=== PATIENT | female | born 1930 | race Caucasian/White ===

== ENCOUNTER 2018-05-08 18:12 | Emergency (ER) | payer MEDICARE, MEDICAID ==
[~2018-05-08] VITALS: Ht 162.6 cm; Wt 67.0 kg
[~2018-05-08 18:12] MED LIST: LEVO25TA7 PO; RISP0.5T74 PO
[2018-05-08 19:00] LABS: BASOPHILS % (AUTO) 0.3 % (0-1); EOSINOPHILS % (AUTO) 0 % (0-6); HEMATOCRIT 36.7 % (35.0-45.0); HEMOGLOBIN 12.4 g/dl (12.0-16.0); LYMPHOCYTES % (AUTO) 10.8 % (21-51); MEAN CORPUSCULAR HEMOGLOBIN 31.6 PG (27.0-31.0); MEAN CORPUSCULAR HGB CONC 33.7 % (33.0-36.5); MEAN CORPUSCULAR VOLUME 93.7 FL (78-98); MEAN PLATELET VOLUME 7.3 FL (7.4-10.4); MONOCYTES # (AUTO) 0.7 X10'3 (0-0.9); MONOCYTES % (AUTO) 7.1 % (2-12); NEUTROPHILS # (AUTO) 7.8 X10'3 (1.8-7.7); NEUTROPHILS % (AUTO) 81.8 % (42-75); PLATELET COUNT 173 X10'3 (140-440); RED BLOOD COUNT 3.92 X10'6 (4.20-5.60); RED CELL DISTRIBUTION WIDTH 14.4 % (11.5-14.5); WHITE BLOOD COUNT 9.5 X10'3 (4.5-11.0)
[2018-05-08 19:24] LABS: ALANINE AMINOTRANSFERASE 17 U/L (12-78); ALBUMIN 2.9 G/DL (3.4-5.0); ALBUMIN/GLOBULIN RATIO 0.9 (1.1-1.5); ALKALINE PHOSPHATASE 75 IU/L (46-116); ANION GAP 9 (8-16); ASPARTATE AMINO TRANSFERASE 15 U/L (10-37); BILIRUBIN,TOTAL 0.5 MG/DL (0.1-1.0); BLOOD UREA NITROGEN 30 MG/DL (7-18); BUN/CREATININE RATIO 21.4 (6.6-38.0); CALCIUM 8.1 MG/DL (8.5-10.1); CHLORIDE 101 MMOL/L (99-107); GLUCOSE 124 MG/DL (70-104); POTASSIUM 3.3 MMOL/L (3.5-5.1); SODIUM 139 MMOL/L (135-145); TOTAL CARBON DIOXIDE 29.3 MMOL/L (24-32); TOTAL PROTEIN 6.1 G/DL (6.4-8.2); eGFR 36 ML/MIN
[2018-05-08 19:57] LABS: CLARITY,URINE SLIGHTLY CLOUDY (Clear); COLOR,URINE YELLOW (Yellow); GLUCOSE, URINE NEGATIVE (Neg); KETONES,URINE TRACE mg/dl (Neg); LEUKOCYTE ESTERASE ,URINE SMALL (Neg); NITRITES, URINE POSITIVE (Neg); OCCULT BLOOD,URINE SMALL (Neg); PROTEIN,URINE TRACE mg/dl (Neg); UROBILINOGEN,URINE 0.2 E.U/dL (0.2-1.0)
[2018-05-08 20:00] LABS: UA COLLECTION TYPE STRAIGHT CATH
[2018-05-08 20:18] LABS: WBC CLUMPS,URINE FEW /HPF (NEGATIVE); WBC,URINE TNTC /HPF (0-4)
[2018-05-08 20:19] LABS: BACTERIA,URINE 4+ /HPF (Neg); RBC,URINE 0-2 /HPF (0-2); SQUAMOUS EPITHELIAL CELL,UR MODERATE /LPF (FEW)
[2018-05-08] MEDS ORDERED: CefTRIAXone 2gm/D5W 50ml 50 ML IV ONE (20:55)
[2018-05-08 21:07] VITALS: BP 109/68
[2018-05-08] MEDS ORDERED: CEPH500C5 PO (21:15)
[2018-05-08] MEDS ORDERED: diphenhydrAMINE 25mg capsule PO ONE (23:25)
== END 2018-05-08 23:37 | disposition home or self-care (01) ==
LOC: ER 18:13
DX: R41.82 Altered mental status, unspecified (principal); E86.0 Dehydration; N39.0 Urinary tract infection, site not specified; F03.90 Unspecified dementia, unspecified severity, without behavioral disturbance, psychotic disturbance, mood disturbance, and anxiety; R53.1 Weakness; E03.9 Hypothyroidism, unspecified; Z90.49 Acquired absence of other specified parts of digestive tract; Z98.890 Other specified postprocedural states; Z79.899 Other long term (current) drug therapy
CPT/HCPCS: 36415; 70450; 71045; 80053; 81001; 83605; 85025; 87040; 87077; 87088; 87186; 93005; 96365; 99285; J0696; P9612; Q0163

== ENCOUNTER 2018-07-21 22:29 | Inpatient (IN) | payer MEDICARE, MEDICAID ==
[~2018-07-21] VITALS: Ht 162.6 cm; Wt 72.0 kg
[~2018-07-21 22:29] MED LIST changes: +CEPH500C5 PO
[2018-07-21] MEDS ORDERED: levoFLOXACIN-Levaquin 750MG/D5 150 ML IV ONE (22:50)
[2018-07-21] MEDS ORDERED: acetaminophen 325mg tablet PO STA (22:50)
[2018-07-21] MEDS ORDERED: normal saline 1000ML IV soln IVB ONE (22:50)
[2018-07-21 23:22] LABS: BASOPHILS % (AUTO) 0.2 % (0-1); EOSINOPHILS % (AUTO) 0 % (0-6); HEMATOCRIT 39.7 % (35.0-45.0); HEMOGLOBIN 13.1 g/dl (12.0-16.0); LYMPHOCYTES # (AUTO) 0.6 X10'3 (1.1-4.8); LYMPHOCYTES % (AUTO) 6.6 % (21-51); MEAN CORPUSCULAR HEMOGLOBIN 31.2 PG (27.0-31.0); MEAN CORPUSCULAR HGB CONC 33.1 % (33.0-36.5); MEAN CORPUSCULAR VOLUME 94.4 FL (78-98); MEAN PLATELET VOLUME 7.5 FL (7.4-10.4); MONOCYTES # (AUTO) 0.5 X10'3 (0-0.9); MONOCYTES % (AUTO) 5.5 % (2-12); NEUTROPHILS # (AUTO) 8.5 X10'3 (1.8-7.7); NEUTROPHILS % (AUTO) 87.7 % (42-75); PLATELET COUNT 189 X10'3 (140-440); RED BLOOD COUNT 4.21 X10'6 (4.20-5.60); RED CELL DISTRIBUTION WIDTH 13.6 % (11.5-14.5); WHITE BLOOD COUNT 9.7 X10'3 (4.5-11.0)
[2018-07-21 23:33] LABS: PROTHROMBIN TIME 10.6 SECONDS (9.0-12.0)
[2018-07-21 23:34] LABS: PARTIAL THROMBOPLASTIN TIME 28 SECONDS (22-32)
[2018-07-21 23:49] LABS: ALANINE AMINOTRANSFERASE 19 U/L (12-78); ALBUMIN/GLOBULIN RATIO 0.8 (1.1-1.5); ALKALINE PHOSPHATASE 83 IU/L (46-116); ANION GAP 5 (8-16); ASPARTATE AMINO TRANSFERASE 18 U/L (10-37); BILIRUBIN,TOTAL 0.7 MG/DL (0.1-1.0); BLOOD UREA NITROGEN 29 MG/DL (7-18); BUN/CREATININE RATIO 27.9 (6.6-38.0); CALCIUM 8.7 MG/DL (8.5-10.1); CHLORIDE 100 MMOL/L (99-107); CREATININE 1.04 MG/DL (0.40-0.90); GLUCOSE 109 MG/DL (70-104); MAGNESIUM 2.1 MG/DL (1.5-2.4); POTASSIUM 3.7 MMOL/L (3.5-5.1); SODIUM 138 MMOL/L (135-145); TOTAL CARBON DIOXIDE 32.6 MMOL/L (24-32); TOTAL PROTEIN 6.6 G/DL (6.4-8.2); eGFR 50 ML/MIN
[2018-07-22] MEDS ORDERED: LEVO50TA8 PO (00:18)
[2018-07-22] MEDS ORDERED: OLAN5TAB5 PO (00:18)
[2018-07-22] MEDS ORDERED: HYDR50TA3 PO (00:18)
[2018-07-22 00:22] LABS: CLARITY,URINE CLOUDY (Clear); COLOR,URINE YELLOW (Yellow); GLUCOSE, URINE NEGATIVE (Neg); KETONES,URINE NEGATIVE (Neg); LEUKOCYTE ESTERASE ,URINE LARGE (Neg); NITRITES, URINE POSITIVE (Neg); OCCULT BLOOD,URINE MODERATE (Neg); PROTEIN,URINE TRACE mg/dl (Neg); UROBILINOGEN,URINE 0.2 E.U/dL (0.2-1.0)
[2018-07-22 00:31] LABS: UA COLLECTION TYPE CLN CATCH MIDSTREAM
[2018-07-22 00:33] LABS: RBC,URINE NONE SEEN /HPF (0-2); WBC,URINE 50-100 /HPF (0-4)
[2018-07-22 00:34] LABS: BACTERIA,URINE 4+ /HPF (Neg); SQUAMOUS EPITHELIAL CELL,UR MODERATE /LPF (FEW)
[2018-07-22] MEDS ORDERED: ondansetron/PF 4mg/2ml inj IV PRN (02:15)
[2018-07-22] MEDS ORDERED: acetaminophen 325mg tablet PO PRN ×2 (02:15)
[2018-07-22] MEDS ORDERED: mag hydrox/Alum hydrox/simeth 30ml oral suspension PO PRN (02:15)
[2018-07-22] MEDS ORDERED: magnesium hydroxide 30ml (MOM) UD suspension PO PRN (02:15)
[2018-07-22 03:23] VITALS: BP 106/50
[2018-07-22] MEDS ORDERED: HYDROcodone/acetaminophen 10/325mg tab PO PRN (03:50)
[2018-07-22] MEDS: HYDROcodone/acetaminophen 5mg/325mg tablet PO PRN (04:02)
[2018-07-22] MEDS: cefepime 1GM/NS ADD-VANTAGE 100 ML IV SCH (04:35)
[2018-07-22] MEDS: normal saline 1000ml 1,000 ML IV SCH ×3 (04:35→23:52)
[2018-07-22 10:30] VITALS: BP 104/41
[2018-07-22] MEDS: levoTHYROXINE 25mcg tablet PO SCH (10:33)
[2018-07-22] MEDS: OLANZapine 5mg rapidly disint. tablet PO SCH (10:33)
[2018-07-22 20:00] VITALS: BP 92/48
[2018-07-22] MEDS: lactobacillus rhamnosus 10,000 MMU CELLS/CAPSULE PO SCH (20:31)
[2018-07-23] VITALS: BP 114/49
[2018-07-23] MEDS: HYDROcodone/acetaminophen 5mg/325mg tablet PO PRN (01:31)
[2018-07-23] MEDS: vancomycin/NS 1 GM ADD-VANTAGE 250 ML IV SCH (03:07)
[2018-07-23 05:00] VITALS: BP 103/49
[2018-07-23] MEDS: cefepime 1GM/NS ADD-VANTAGE 100 ML IV SCH (05:08)
[2018-07-23] MEDS: OLANZapine 5mg rapidly disint. tablet PO SCH (07:58)
[2018-07-23] MEDS: levoTHYROXINE 25mcg tablet PO SCH (07:59)
[2018-07-23] MEDS: lactobacillus rhamnosus 10,000 MMU CELLS/CAPSULE PO SCH ×2 (07:59→21:08)
[2018-07-23 08:17] LABS: BASOPHILS % (AUTO) 0.3 % (0-1); EOSINOPHILS # (AUTO) 0.1 X10'3 (0-0.9); EOSINOPHILS % (AUTO) 1.4 % (0-6); HEMATOCRIT 37.8 % (35.0-45.0); HEMOGLOBIN 12.4 g/dl (12.0-16.0); LYMPHOCYTES # (AUTO) 0.5 X10'3 (1.1-4.8); MEAN CORPUSCULAR HGB CONC 32.9 % (33.0-36.5); MEAN CORPUSCULAR VOLUME 94.3 FL (78-98); MEAN PLATELET VOLUME 7.3 FL (7.4-10.4); MONOCYTES # (AUTO) 0.4 X10'3 (0-0.9); MONOCYTES % (AUTO) 7.5 % (2-12); NEUTROPHILS # (AUTO) 4.9 X10'3 (1.8-7.7); NEUTROPHILS % (AUTO) 82.8 % (42-75); PLATELET COUNT 167 X10'3 (140-440); RED BLOOD COUNT 4.01 X10'6 (4.20-5.60); RED CELL DISTRIBUTION WIDTH 14.5 % (11.5-14.5); WHITE BLOOD COUNT 5.9 X10'3 (4.5-11.0)
[2018-07-23 08:28] LABS: ALBUMIN 2.6 G/DL (3.4-5.0); ANION GAP 7 (8-16); BLOOD UREA NITROGEN 26 MG/DL (7-18); BUN/CREATININE RATIO 23.6 (6.6-38.0); CALCIUM 8.4 MG/DL (8.5-10.1); CHLORIDE 103 MMOL/L (99-107); GLUCOSE 95 MG/DL (70-104); POTASSIUM 3.5 MMOL/L (3.5-5.1); SODIUM 140 MMOL/L (135-145); eGFR 47 ML/MIN
[2018-07-23 10:00] VITALS: BP 85/36
[2018-07-23 18:00] VITALS: BP 107/40
[2018-07-23] MEDS: normal saline 1000ml 1,000 ML IV SCH (19:13)
[2018-07-23 22:00] VITALS: BP 134/69
[2018-07-24] MEDS: HYDROcodone/acetaminophen 5mg/325mg tablet PO PRN (00:50)
[2018-07-24] MEDS: vancomycin/NS 1 GM ADD-VANTAGE 250 ML IV SCH (03:36)
[2018-07-24] MEDS: cefepime 1GM/NS ADD-VANTAGE 100 ML IV SCH (05:33)
[2018-07-24 06:00] VITALS: BP 117/63
[2018-07-24 06:00] LABS: BASOPHILS % (AUTO) 0.3 % (0-1); EOSINOPHILS # (AUTO) 0.1 X10'3 (0-0.9); EOSINOPHILS % (AUTO) 2.5 % (0-6); HEMATOCRIT 36.1 % (35.0-45.0); LYMPHOCYTES % (AUTO) 24.4 % (21-51); MEAN CORPUSCULAR HEMOGLOBIN 31.1 PG (27.0-31.0); MEAN CORPUSCULAR HGB CONC 33.3 % (33.0-36.5); MEAN CORPUSCULAR VOLUME 93.5 FL (78-98); MEAN PLATELET VOLUME 7.3 FL (7.4-10.4); MONOCYTES # (AUTO) 0.4 X10'3 (0-0.9); MONOCYTES % (AUTO) 10.5 % (2-12); NEUTROPHILS # (AUTO) 2.5 X10'3 (1.8-7.7); NEUTROPHILS % (AUTO) 62.3 % (42-75); PLATELET COUNT 192 X10'3 (140-440); RED BLOOD COUNT 3.86 X10'6 (4.20-5.60); RED CELL DISTRIBUTION WIDTH 14.2 % (11.5-14.5)
[2018-07-24 06:27] LABS: ALBUMIN 2.3 G/DL (3.4-5.0); ANION GAP 5 (8-16); BLOOD UREA NITROGEN 18 MG/DL (7-18); BUN/CREATININE RATIO 19.6 (6.6-38.0); CALCIUM 8.3 MG/DL (8.5-10.1); CHLORIDE 105 MMOL/L (99-107); CREATININE 0.92 MG/DL (0.40-0.90); GLUCOSE 88 MG/DL (70-104); POTASSIUM 3.1 MMOL/L (3.5-5.1); SODIUM 141 MMOL/L (135-145); TOTAL CARBON DIOXIDE 31.5 MMOL/L (24-32); eGFR 58 ML/MIN
[2018-07-24] MEDS: normal saline 1000ml 1,000 ML IV SCH ×2 (07:32→13:51)
[2018-07-24] MEDS: lactobacillus rhamnosus 10,000 MMU CELLS/CAPSULE PO SCH ×2 (07:52→19:18)
[2018-07-24] MEDS: levoTHYROXINE 25mcg tablet PO SCH (07:52)
[2018-07-24] MEDS: OLANZapine 5mg rapidly disint. tablet PO SCH (07:52)
[2018-07-24 10:17] VITALS: BP 128/35
[2018-07-24] MEDS ORDERED: potassium Cl 20 mEq SR tablet PO PRN (15:45)
[2018-07-24] MEDS: potassium Cl 20 mEq SR tablet PO PRN ×2 (16:45→20:30)
[2018-07-24 18:00] VITALS: BP 138/64
[2018-07-24] MEDS ORDERED: potassium Cl 40MEQ/NS 500ml 500 ML IV PRN ×2 (21:00)
[2018-07-24 22:00] VITALS: BP 104/56
[2018-07-25] MEDS: albuterol 2.5 MG/3 ML nebule NEB PRN ×2 (00:43→14:19)
[2018-07-25] MEDS ORDERED: VANCOMYCIN LEVEL IV NR (02:30)
[2018-07-25 02:31] LABS: BASOPHILS % (AUTO) 0.6 % (0-1); EOSINOPHILS # (AUTO) 0.1 X10'3 (0-0.9); EOSINOPHILS % (AUTO) 3.2 % (0-6); HEMATOCRIT 37.2 % (35.0-45.0); HEMOGLOBIN 12.4 g/dl (12.0-16.0); LYMPHOCYTES # (AUTO) 1.2 X10'3 (1.1-4.8); LYMPHOCYTES % (AUTO) 35.4 % (21-51); MEAN CORPUSCULAR HEMOGLOBIN 31.2 PG (27.0-31.0); MEAN CORPUSCULAR HGB CONC 33.3 % (33.0-36.5); MEAN CORPUSCULAR VOLUME 93.8 FL (78-98); MONOCYTES # (AUTO) 0.4 X10'3 (0-0.9); MONOCYTES % (AUTO) 11.3 % (2-12); NEUTROPHILS # (AUTO) 1.7 X10'3 (1.8-7.7); NEUTROPHILS % (AUTO) 49.5 % (42-75); PLATELET COUNT 211 X10'3 (140-440); RED BLOOD COUNT 3.97 X10'6 (4.20-5.60); RED CELL DISTRIBUTION WIDTH 13.9 % (11.5-14.5); WHITE BLOOD COUNT 3.5 X10'3 (4.5-11.0)
[2018-07-25 02:46] LABS: ALBUMIN 2.4 G/DL (3.4-5.0); ANION GAP 6 (8-16); BLOOD UREA NITROGEN 19 MG/DL (7-18); BUN/CREATININE RATIO 20.4 (6.6-38.0); CALCIUM 8.4 MG/DL (8.5-10.1); CHLORIDE 108 MMOL/L (99-107); CREATININE 0.93 MG/DL (0.40-0.90); GLUCOSE 105 MG/DL (70-104); POTASSIUM 4.4 MMOL/L (3.5-5.1); SODIUM 144 MMOL/L (135-145); TOTAL CARBON DIOXIDE 30.5 MMOL/L (24-32); eGFR 57 ML/MIN
[2018-07-25] MEDS: cefepime 1GM/NS ADD-VANTAGE 100 ML IV SCH (03:08)
[2018-07-25] MEDS: vancomycin/NS 1 GM ADD-VANTAGE 250 ML IV SCH (03:10)
[2018-07-25 05:00] VITALS: BP 126/47
[2018-07-25] MEDS: levoTHYROXINE 25mcg tablet PO SCH (07:37)
[2018-07-25] MEDS: lactobacillus rhamnosus 10,000 MMU CELLS/CAPSULE PO SCH (07:37)
[2018-07-25] MEDS: OLANZapine 5mg rapidly disint. tablet PO SCH (07:37)
[2018-07-25 10:00] VITALS: BP 149/53
[2018-07-25] MEDS: normal saline 1000ml 1,000 ML IV SCH (10:12)
[2018-07-25] MEDS ORDERED: CEFD300C3 PO (14:37)
== END 2018-07-25 17:21 | disposition home or self-care (01) | DRG 871 ==
LOC: ER 22:30 → ED HOLD 07-22 02:12 → ORTHO 4S 07-22 02:35
PROVIDERS: ADMIT Internal Medicine; ATTEND Family Medicine
DX: A41.9 Sepsis, unspecified organism (principal); J18.9 Pneumonia, unspecified organism; E43 Unspecified severe protein-calorie malnutrition; N39.0 Urinary tract infection, site not specified; N17.9 Acute kidney failure, unspecified; R09.02 Hypoxemia; B96.20 Unspecified Escherichia coli [E. coli] as the cause of diseases classified elsewhere; E03.9 Hypothyroidism, unspecified; E83.51 Hypocalcemia; E87.6 Hypokalemia; E86.0 Dehydration; F02.80 Dementia in other diseases classified elsewhere, unspecified severity, without behavioral disturbance, psychotic disturbance, mood disturbance, and anxiety; G30.9 Alzheimer's disease, unspecified; I12.9 Hypertensive chronic kidney disease with stage 1 through stage 4 chronic kidney disease, or unspecified chronic kidney disease; N18.9 Chronic kidney disease, unspecified; Z66 Do not resuscitate; Z96.642 Presence of left artificial hip joint; Z90.49 Acquired absence of other specified parts of digestive tract; Z99.3 Dependence on wheelchair; Z79.899 Other long term (current) drug therapy; Z79.890 Hormone replacement therapy; Z87.440 Personal history of urinary (tract) infections; Z87.891 Personal history of nicotine dependence; Z68.27 Body mass index [BMI] 27.0-27.9, adult
CPT/HCPCS: 36415; 71045; 80048; 80053; 80202; 81001; 83605; 83735; 84145; 84443; 84484; 85025; 85610; 85730; 87040; 87070; 87077; 87088; 87186; 87502; 87503; 94640; 94760; 96365; 97116; 97161; 97530; 97535; 99285; G0378; J0692; J1956; J3370; J3480; J7030

== ENCOUNTER 2018-08-12 07:24 | Inpatient (IN) | payer MEDICARE, MEDICAID ==
[~2018-08-12] VITALS: Ht 167.6 cm; Wt 72.7 kg
[~2018-08-12 07:24] MED LIST changes: +CEFD300C3 PO; -CEPH500C5 PO; +HYDR50TA3 PO; -LEVO25TA7 PO; +LEVO50TA8 PO; +OLAN5TAB5 PO; -RISP0.5T74 PO
[2018-08-12] MEDS ORDERED: CefTRIAXone 2gm/D5W 50ml 50 ML IV ONE (07:30)
[2018-08-12] MEDS ORDERED: normal saline 1000ML IV soln IV ONE (07:30)
[2018-08-12] MEDS ORDERED: vancomycin/NS 1 GM ADD-VANTAGE 250 ML IV ONE (07:30)
[2018-08-12 08:33] LABS: BASOPHILS % (AUTO) 0.2 % (0-1); EOSINOPHILS % (AUTO) 0.3 % (0-6); HEMATOCRIT 38.9 % (35.0-45.0); HEMOGLOBIN 13.1 g/dl (12.0-16.0); LYMPHOCYTES # (AUTO) 0.5 X10'3 (1.1-4.8); MEAN CORPUSCULAR HEMOGLOBIN 31.2 PG (27.0-31.0); MEAN CORPUSCULAR HGB CONC 33.7 % (33.0-36.5); MEAN CORPUSCULAR VOLUME 92.7 FL (78-98); MEAN PLATELET VOLUME 7.8 FL (7.4-10.4); MONOCYTES % (AUTO) 5.9 % (2-12); NEUTROPHILS # (AUTO) 14.9 X10'3 (1.8-7.7); NEUTROPHILS % (AUTO) 90.6 % (42-75); PLATELET COUNT 229 X10'3 (140-440); RED CELL DISTRIBUTION WIDTH 13.6 % (11.5-14.5); WHITE BLOOD COUNT 16.4 X10'3 (4.5-11.0)
[2018-08-12 08:39] LABS: ALANINE AMINOTRANSFERASE 15 U/L (12-78); ALBUMIN 2.8 G/DL (3.4-5.0); ALBUMIN/GLOBULIN RATIO 0.8 (1.1-1.5); ALKALINE PHOSPHATASE 78 IU/L (46-116); ANION GAP 13 (8-16); ASPARTATE AMINO TRANSFERASE 24 U/L (10-37); BILIRUBIN,TOTAL 0.7 MG/DL (0.1-1.0); BLOOD UREA NITROGEN 38 MG/DL (7-18); BUN/CREATININE RATIO 14.8 (6.6-38.0); CALCIUM 8.5 MG/DL (8.5-10.1); CHLORIDE 100 MMOL/L (99-107); CREATININE 2.57 MG/DL (0.40-0.90); GLUCOSE 140 MG/DL (70-104); MAGNESIUM 1.6 MG/DL (1.5-2.4); POTASSIUM 3.6 MMOL/L (3.5-5.1); SODIUM 140 MMOL/L (135-145); TOTAL CARBON DIOXIDE 26.6 MMOL/L (24-32); TOTAL PROTEIN 6.2 G/DL (6.4-8.2); eGFR 18 ML/MIN
[2018-08-12] MEDS ORDERED: OLAN7.5T9 PO (08:44)
[2018-08-12 09:06] LABS: PROTHROMBIN TIME 10.7 SECONDS (9.0-12.0)
[2018-08-12 09:07] LABS: INR 1.1 INR; PARTIAL THROMBOPLASTIN TIME 23 SECONDS (22-32)
[2018-08-12 09:24] LABS: PLATELET ESTIMATE NORMAL; TOTAL CELLS COUNTED 100
[2018-08-12] MEDS ORDERED: acetaminophen 1,000mg/100ml IV 100 ML IV ONE (09:25)
[2018-08-12 09:29] LABS: CLARITY,URINE CLOUDY (Clear); COLOR,URINE YELLOW (Yellow); GLUCOSE, URINE NEGATIVE (Neg); KETONES,URINE TRACE mg/dl (Neg); LEUKOCYTE ESTERASE ,URINE LARGE (Neg); NITRITES, URINE POSITIVE (Neg); OCCULT BLOOD,URINE LARGE (Neg); PH,URINE 6.5 (4.8-8.0); PROTEIN,URINE 100 mg/dl (Neg); UROBILINOGEN,URINE 0.2 E.U/dL (0.2-1.0)
[2018-08-12] MEDS ORDERED: acetaminophen 650mg rectal suppository RC ONE ×2 (09:35→11:40)
[2018-08-12 09:39] LABS: UA COLLECTION TYPE FOLEY CATH
[2018-08-12 09:41] LABS: BACTERIA,URINE 3+ /HPF (Neg); SQUAMOUS EPITHELIAL CELL,UR FEW /LPF (FEW); WBC,URINE TNTC /HPF (0-4)
[2018-08-12] MEDS ORDERED: magnesium Cl slow-release 64mg tablet PO PRN (10:20)
[2018-08-12] MEDS ORDERED: ondansetron/PF 4mg/2ml inj IV PRN (10:20)
[2018-08-12] MEDS ORDERED: magnesium 4gm in 100ml NS 100 ML IV PRN (10:20)
[2018-08-12] MEDS ORDERED: potassium Cl 20 mEq SR tablet PO PRN ×2 (10:20)
[2018-08-12] MEDS ORDERED: potassium Cl 40MEQ/NS 500ml 500 ML IV PRN ×2 (10:20)
[2018-08-12] MEDS: normal saline 1000ml 1,000 ML IV SCH ×2 (11:49→19:04)
[2018-08-12] MEDS ORDERED: NITR100C PO (12:22)
[2018-08-12 16:07] VITALS: BP 109/63
[2018-08-12 18:00] VITALS: BP 145/116
[2018-08-12 22:00] VITALS: BP 106/62
[2018-08-12] MEDS: acetaminophen 650mg rectal suppository RC PRN (22:28)
[2018-08-13] MEDS: normal saline 1000ml 1,000 ML IV SCH (05:10)
[2018-08-13] MEDS: acetaminophen 650mg rectal suppository RC PRN (05:11)
[2018-08-13 07:12] LABS: BASOPHILS % (AUTO) 0 % (0-1); EOSINOPHILS % (AUTO) 0 % (0-6); HEMATOCRIT 37.7 % (35.0-45.0); HEMOGLOBIN 12.3 g/dl (12.0-16.0); LYMPHOCYTES # (AUTO) 0.4 X10'3 (1.1-4.8); LYMPHOCYTES % (AUTO) 2.2 % (21-51); MEAN CORPUSCULAR HEMOGLOBIN 30.9 PG (27.0-31.0); MEAN CORPUSCULAR HGB CONC 32.7 % (33.0-36.5); MEAN CORPUSCULAR VOLUME 94.3 FL (78-98); MEAN PLATELET VOLUME 7.9 FL (7.4-10.4); MONOCYTES # (AUTO) 0.6 X10'3 (0-0.9); MONOCYTES % (AUTO) 3.8 % (2-12); PLATELET COUNT 139 X10'3 (140-440); RED BLOOD COUNT 3.99 X10'6 (4.20-5.60); RED CELL DISTRIBUTION WIDTH 14.3 % (11.5-14.5)
[2018-08-13 07:18] VITALS: BP 109/58
[2018-08-13 07:26] LABS: ALBUMIN 2.1 G/DL (3.4-5.0); ANION GAP 11 (8-16); BLOOD UREA NITROGEN 45 MG/DL (7-18); BUN/CREATININE RATIO 21.5 (6.6-38.0); CALCIUM 7.8 MG/DL (8.5-10.1); CHLORIDE 107 MMOL/L (99-107); CREATININE 2.09 MG/DL (0.40-0.90); GLUCOSE 118 MG/DL (70-104); MAGNESIUM 1.7 MG/DL (1.5-2.4); POTASSIUM 3.7 MMOL/L (3.5-5.1); SODIUM 143 MMOL/L (135-145); TOTAL CARBON DIOXIDE 25.3 MMOL/L (24-32); eGFR 22 ML/MIN
[2018-08-13] MEDS ORDERED: CefTRIAXone/D5W-Rocephin 1gm 50 ML IV SCH (08:00)
[2018-08-13] MEDS ORDERED: K and/or MAG REPLACEMENT MC SCH (08:00)
[2018-08-13] MEDS ORDERED: ondansetron 4mg rapidly disintigrating tab PO PRN (11:00)
[2018-08-13] MEDS ORDERED: ondansetron 4mg/5ml UD cup PO PRN (11:00)
[2018-08-13] MEDS ORDERED: hyoscyamine 0.125mg TAB.SUBL SL PRN (11:00)
[2018-08-13] MEDS ORDERED: OLANZapine 5mg rapidly disint. tablet PO PRN ×2 (11:00→11:35)
[2018-08-13] MEDS ORDERED: LORazepam 0.5 MG tablet PO PRN (11:00)
[2018-08-13] MEDS ORDERED: LORazepam 2 mg/ml vial IV PRN (11:00)
[2018-08-13] MEDS: morphine 10mg/0.5ml (conc. morphine) oral syringe PO PRN ×2 (12:20→13:43)
[2018-08-13] MEDS ORDERED: vancomycin/NS 1 GM ADD-VANTAGE 250 ML IV SCH (13:00)
[2018-08-13] MEDS: OLANZapine 2.5MG tablet PO SCH (20:08)
[2018-08-13] MEDS ORDERED: OLANZapine 2.5MG tablet PO SCH (21:00)
[2018-08-13 22:00] VITALS: BP 138/60
[2018-08-14] MEDS: morphine 10mg/0.5ml (conc. morphine) oral syringe PO PRN ×3 (02:09→23:12)
[2018-08-14] MEDS: acetaminophen 650mg rectal suppository RC PRN (04:00)
[2018-08-14 10:00] VITALS: BP 112/58
[2018-08-14] MEDS: OLANZapine 2.5MG tablet PO SCH (21:00)
[2018-08-14 22:00] VITALS: BP 107/68
[2018-08-15] MEDS: morphine 10mg/0.5ml (conc. morphine) oral syringe PO PRN ×3 (00:05→11:48)
[2018-08-15 10:00] VITALS: BP 148/65
[2018-08-16] MEDS ORDERED: VANCOMYCIN LEVEL IV ONE (12:30)
== END 2018-08-15 12:05 | disposition hospice, inpatient (51) | DRG 871 ==
LOC: ER 07:25 → ED HOLD 10:19 → ORTHO 4S 15:49
PROVIDERS: ADMIT Internal Medicine; ATTEND Internal Medicine
DX: A41.9 Sepsis, unspecified organism (principal); G93.41 Metabolic encephalopathy; N39.0 Urinary tract infection, site not specified; N17.9 Acute kidney failure, unspecified; E87.2 Acidosis; J44.9 Chronic obstructive pulmonary disease, unspecified; F03.90 Unspecified dementia, unspecified severity, without behavioral disturbance, psychotic disturbance, mood disturbance, and anxiety; E03.9 Hypothyroidism, unspecified; I10 Essential (primary) hypertension; B96.5 Pseudomonas (aeruginosa) (mallei) (pseudomallei) as the cause of diseases classified elsewhere; Z51.5 Encounter for palliative care; Z66 Do not resuscitate; Z90.49 Acquired absence of other specified parts of digestive tract; Z87.81 Personal history of (healed) traumatic fracture; Z87.01 Personal history of pneumonia (recurrent); Z87.440 Personal history of urinary (tract) infections
CPT/HCPCS: 36415; 71045; 80048; 80053; 80202; 81001; 82948; 83605; 83735; 84145; 85025; 85610; 85730; 87040; 87070; 87077; 87088; 87186; 93005; 96365; 96366; 96368; 99285; G0378; J0131; J0696; J3370; J7030